=== PATIENT | female | born 1945 | race Caucasian/White ===

== ENCOUNTER 2025-02-07 14:01 | Inpatient (IN) | payer MEDICARE, OTHER ==
[~2025-02-07] VITALS: Ht 157.5 cm; Wt 49.5 kg
[2025-02-07 14:35] LABS: PLATELET COUNT (AUTO) 257 K/uL (179-408); RED BLOOD CELL COUNT(AUTO) 4.18 MIL/uL (3.63-4.92); RED CELL DISTRIBUTION WIDTH 13.7 % (12.3-17.7); WHITE BLOOD COUNT (AUTO) 4.8 K/uL (3.8-11.8)
[2025-02-07] MEDS: IV NORMAL SALINE 500 ML BAG IV ONE (14:42)
[2025-02-07 14:49] LABS: ASPARTATE AMINOTRANSFERASE 27 U/L (15-37); CREATININE 0.8 mg/dL (0.6-1.3); SODIUM SERUM 130 mmol/L (136-145); TOTAL PROTEIN, SERUM 7.2 g/dL (6.4-8.2); UREA NITROGEN, BLOOD 28 mg/dL (7-18)
[2025-02-07] MEDS ORDERED: POTASSIUM CHLORIDE 50 ML ONE ×2 (15:34→16:06)
[2025-02-07] MEDS ORDERED: POTASSIUM CHLORIDE 20 MEQ TAB.PRT.SR ONE (15:36)
[2025-02-07] MEDS: POTASSIUM CHLORIDE 20 MEQ TAB.PRT.SR PO ONE (15:47)
[2025-02-07] MEDS: IV NORMAL SALINE 1000 ML BAG IV ONE (15:47)
[2025-02-07] MEDS: POTASSIUM CHLORIDE 50 ML IV SCH (15:47)
[2025-02-07 15:49] LABS: *BILIRUBIN,URIN NEGATIVE (NEGATIVE); *BLOOD, URINE NEGATIVE (NEGATIVE); *CLARITY,URINE CLEAR (CLEAR); *COLOR,URINE YELLOW (YELLOW); *KETONES,URINE NEGATIVE (NEGATIVE); *PROTEIN,URINE NEGATIVE (NEGATIVE); *UROBILINOGEN,URINE 0.2 E.U./dl (NORMAL); LEUKOCYTE ESTERASE ,URINE NEGATIVE (NEGATIVE); NITRITE, URINE NEGATIVE (NEGATIVE); UGLUCOSE NEGATIVE (NEGATIVE)
[2025-02-07] MEDS ORDERED: SENN1TAB59 PO (15:55)
[2025-02-07] MEDS ORDERED: TORS10TA17 PO (15:55)
[2025-02-07] MEDS ORDERED: ESTR1PAT86 TD (15:55)
[2025-02-07] MEDS ORDERED: LUBI8CAP PO (15:55)
[2025-02-07] MEDS ORDERED: NIFE60TA73 PO (15:55)
[2025-02-07] MEDS ORDERED: NITR1OIN2 TP (15:55)
[2025-02-07] MEDS ORDERED: ONDANSETRON 4 MG/2 ML VIAL IV PRN (17:00)
[2025-02-07] MEDS ORDERED: ACETAMINOPHEN 325 MG TABLET PO PRN (17:00)
[2025-02-07] MEDS ORDERED: NITROGLYCERIN OINT 1 GM PACKET TP PRN (17:00)
[2025-02-07] MEDS ORDERED: LUBI24CA5 PO (17:06)
[2025-02-07] MEDS ORDERED: DUTA0.5C37 PO (17:07)
[2025-02-07] MEDS: POTASSIUM CHLORIDE 20 MEQ in IV NS 1000 ML 1,000 ML IV PRN (18:48)
[2025-02-07 19:20] VITALS: BP 145/75; TEMP 98.7; O2SAT 95
[2025-02-07] MEDS: NIFEdipine XL 60 MG TABSR PO SCH (21:03)
[2025-02-07] MEDS: TEMAZEPAM 7.5 MG CAPSULE PO PRN (21:03)
[2025-02-07] MEDS: ENOXAPARIN SODIUM 40 MG/0.4 ML DISP.SYRIN SQ SCH ×2 (21:04→21:50)
[2025-02-07] MEDS: SENNOSIDES/DOCUSATE SODIUM TABLET PO SCH (21:04)
[2025-02-08 00:49] VITALS: BP 152/69; TEMP 98.2
[2025-02-08 04:31] VITALS: BP 133/69; TEMP 97.9; O2SAT 95
[2025-02-08] MEDS: PANTOPRAZOLE SODIUM 40 MG TABLET.DR PO SCH (06:06)
[2025-02-08 06:45] LABS: PLATELET COUNT (AUTO) 229 K/uL (179-408); RED BLOOD CELL COUNT(AUTO) 3.90 MIL/uL (3.63-4.92); RED CELL DISTRIBUTION WIDTH 14.0 % (12.3-17.7); WHITE BLOOD COUNT (AUTO) 3.9 K/uL (3.8-11.8)
[2025-02-08 07:30] VITALS: BP 135/97; TEMP 97.7; O2SAT 99
[2025-02-08 07:39] LABS: ASPARTATE AMINOTRANSFERASE 22 U/L (15-37); CREATININE 0.7 mg/dL (0.6-1.3); SODIUM SERUM 136 mmol/L (136-145); TOTAL PROTEIN, SERUM 6.0 g/dL (6.4-8.2); UREA NITROGEN, BLOOD 16 mg/dL (7-18)
[2025-02-08] MEDS ORDERED: TORSEMIDE 10 MG PO SCH (09:00)
[2025-02-08 10:42] VITALS: BP 128/65; TEMP 97.7; O2SAT 98
[2025-02-08] MEDS ORDERED: DENO60DI SQ (12:56)
[2025-02-08] MEDS ORDERED: TRIA15CR4 TP (12:57)
[2025-02-08] MEDS ORDERED: ACET-73 PO (12:59)
[2025-02-08] MEDS ORDERED: LYSI500T11 PO (13:00)
[2025-02-08] MEDS ORDERED: BIOT1CAP3 PO (13:01)
[2025-02-08] MEDS ORDERED: MAGN500C16 PO (13:01)
[2025-02-08] MEDS ORDERED: CHOL2000 PO (13:02)
[2025-02-08] MEDS ORDERED: ARGI500T4 PO (13:03)
[2025-02-08] MEDS ORDERED: BARI2TAB PO (13:03)
[2025-02-08] MEDS ORDERED: IVER117L TP (13:05)
[2025-02-08] MEDS ORDERED: SENN-291 PO (13:06)
[2025-02-08] MEDS ORDERED: [UNRECOGNIZED DRUG - OTHER] PO (13:08)
[2025-02-08 14:21] LABS: BAND % (MANUAL) 4 % (0-10); LYMPHOCYTES % (MANUAL) 20 % (20-40); MONOCYTES % (MANUAL) 16 % (2-10); NEUTROPHILS % (MANUAL) 60 % (42-75)
[2025-02-08 14:22] LABS: PLATELET ESTIMATE ADEQUATE
[2025-02-08 16:15] VITALS: BP 155/70; TEMP 99; O2SAT 96
[2025-02-08 19:00] VITALS: BP 149/72; TEMP 98.3; O2SAT 95
[2025-02-09 06:00] VITALS: BP 149/76; TEMP 98; O2SAT 95
[2025-02-09] MEDS: CHOLECALCIFEROL 1,000 UNIT TABLET PO SCH (08:19)
[2025-02-09 11:12] VITALS: BP 135/60; TEMP 97.6; O2SAT 99
[2025-02-10] MEDS ORDERED: DUTASTERIDE 0.5 MG CAPSULE PO SCH (09:00)
== END 2025-02-09 15:35 | disposition home or self-care (01) | DRG 641 ==
LOC: ER 14:01 → TELE3 17:51 → MEDSURG3 02-08 21:30
PROVIDERS: ADMIT Internal Medicine; ATTEND Internal Medicine
DX: E87.6 Hypokalemia (principal); D68.59 Other primary thrombophilia; E86.0 Dehydration; T50.1X5A Adverse effect of loop [high-ceiling] diuretics, initial encounter; Y92.009 Unspecified place in unspecified non-institutional (private) residence as the place of occurrence of the external cause; E87.1 Hypo-osmolality and hyponatremia; R55 Syncope and collapse; G89.29 Other chronic pain; M54.6 Pain in thoracic spine; G93.9 Disorder of brain, unspecified; M15.9 Polyosteoarthritis, unspecified; M41.84 Other forms of scoliosis, thoracic region; M06.9 Rheumatoid arthritis, unspecified; M81.0 Age-related osteoporosis without current pathological fracture; Z90.710 Acquired absence of both cervix and uterus; Z85.42 Personal history of malignant neoplasm of other parts of uterus; I10 Essential (primary) hypertension; I25.10 Atherosclerotic heart disease of native coronary artery without angina pectoris; Z74.09 Other reduced mobility
CPT/HCPCS: 36415; 70030-TC; 70450; 71045; 83735; 84100; 84443; 84484; 85025; 93307; 93880; A4606; A4663; G0378; J1650; J3480; J7040